=== PATIENT | male | born 1975 | race Asian ===

== ENCOUNTER 2024-09-05 06:12 | Day surgery (SDC) | payer OTHER, SELFPAY | END 2024-09-05 11:44 | disposition home or self-care (01) | LOC: GI 06:12 | PROVIDERS: ATTENDING PHYSICIAN Surgery | DX: Z12.11 Encounter for screening for malignant neoplasm of colon (principal); K64.9 Unspecified hemorrhoids; K64.2 Third degree hemorrhoids | CPT/HCPCS: 46221; G0121 ==